=== PATIENT | female | born 1960 | race African-American/Black ===

== ENCOUNTER → 2017-07-10 | Day surgery (SDC) | payer OTHER ==
[~2017-07-10] VITALS: Ht 166.4 cm; Wt 71.7 kg
[~2017-07-10] MED LIST: LIPITOR10 M1 PO
--- NOTE | 2017-07-10 12:52 | Operative Report ---
Operative/Inv Procedure Report Surgery Date: 07/10/17 Name of Procedure: 1. Exam under anesthesia with anal block 2. Transanal hemorrhoidal dearterialization 2 quadrants next line 3. Excision of the posterior midline external hemorrhoidal skin tag Pre-Operative Diagnosis: Bleeding hemorrhoids Post-Operative Diagnosis: Same Estimated Blood Loss: less than 50ml Surgeon/Telegraph Equipment Maintainer: Marly Arenas MD Anesthesia: local monitored anesthesi Specimens: Posterior midline external hemorrhoidal skin tag Complications: None Condition: Stable to recovery room Operative Indication: Patient is a 57-year-old woman who is up-to-date with colonoscopy. Patient presents because of persistent bleeding from her hemorrhoids. All risks, benefits, and alternatives of the procedure were explained to the patient detail , and she expressed understanding and agreement with the same. Operative/Procedure Note Note: Patient was taken to the operating room and placed in the prone jackknife position on the operating table. All appropriate pressure points were padded and the patient was secured to the operating table. Anesthesia was established by the anesthesia team. The buttocks were taped apart, and the perineum was prepped and draped in the standard surgical fashion. The timeout was carried out. Anal block was achieved with 30 mL of 1% plain lidocaine. On anoscopy, the patient had prominent grade 3 right posterior and left lateral internal hemorrhoids in the posterior midline hemorrhoidal skin tag. There Doppler was used to localize hemorrhoidal artery and the right posterior position. A 2-0 Vicryl suture was used at the base of the hemorrhoidal pedicle [id number] fashion to ligate the vessel, then the same running suture was used on there rest of the hemorrhoidal pedicle to the dentate line. Both ends of the suture were tied together, thus pexing the hemorrhoid. Then the same maneuver was carried out for the left lateral hemorrhoidal pedicle. A small posterior midline hemorrhoidal skin tag was excised using sharp dissection. The mucosa and anoderm were closed using the running 2-0 Vicryl suture. The anal canal was irrigated and checked for hemostasis. The Gelfoam was placed within the anal canal. Bacitracin was placed on the anodermal suture line. Patient tolerated the procedure well. There were no complications. Patient was wakened up and taken to recovery room in stable condition. Findings: Grade 3 left lateral and right posterior internal hemorrhoids and posterior midline hemorrhoidal skin tag Discharge Disposition: home
== END ==
LOC: STS 03:26
DX: K64.2 Third degree hemorrhoids (principal); Z80.0 Family history of malignant neoplasm of digestive organs; L93.0 Discoid lupus erythematosus; F17.210 Nicotine dependence, cigarettes, uncomplicated
CPT/HCPCS: 88304; J2250